=== PATIENT | female | born 1945 | race Hispanic/Latino ===

== ENCOUNTER 2016-09-08 10:55 | Emergency (ER) | payer MEDICARE, OTHER ==
[2016-09-08 11:38] VITALS: BMI 28.7
[2016-09-08 11:42] VITALS: O2SAT 98
[2016-09-08] MEDS ORDERED: cefTRIAXone 1 gm 1 GM/100 ML BAG IVPB STA (11:52)
--- NOTE | 2016-09-08 12:12 | ED PDOC ---
Arrival/HPI - General Chief Complaint: Headache Time Seen by Provider: 09/08/16 11:46 Historian: Patient - History of Present Illness Narrative History of Present Illness (Text): 09/08/16 12:16 A 71 year old female, whose past medical history includes hypertension, presents to the emergency department complaining of worsening right jaw pain and swelling that started two days ago. Reports PMD sent patient to emergency department. Patient denies any earache, sore throat, rhinorrhea, tooth pain, fever, chills or any other complaints at this time. Submental area of jaw has warmth and erythema. Patient reports to smoking quarter of a pack per day. Denies any drinking. PMD: Dr. Alonzo Time/Duration: Other (2 days) Symptom Onset: Sudden Symptom Course: Unchanged Activities at Onset: Rest Context: Home Associated Symptoms (Text): 09/08/16 12:32 2 day history of right jaw pain with a mass and swelling and tenderness which has become red and swollen. No cough congestion or URI. No earache or sore throat. No dental pain, patient has dentures. Sent to the emergency department by her PMD. Past Medical History - Provider Review Nursing Documentation Reviewed: Yes - Infectious Disease Hx of Infectious Diseases: None - Tetanus Immunization Tetanus Immunization: Unknown - Reproductive Menopause: Yes - Cardiac Hx Hypertension: Yes - Pulmonary Hx Respiratory Disorders: No - Neurological Hx Paralysis: No - HEENT Hx HEENT Disorder: No - Renal Hx Renal Disorder: Yes Hx Kidney Stones: Yes - Endocrine/Metabolic Hx Endocrine Disorders: Yes Hx Hypothyroidism: Yes - Hematological/Oncological Hx Blood Transfusions: No Hx Blood Transfusion Reaction: No - Integumentary Hx Dermatological Disorder: No - Musculoskeletal/Rheumatological Hx Musculoskeletal Disorders: No - Gastrointestinal Hx Gastrointestinal Disorders: Yes Hx Diverticulitis: Yes - Genitourinary/Gynecological Hx Genitourinary Disorders: No - Psychiatric Hx Substance Use: No - Surgical History Hx Tonsillectomy: Yes - Anesthesia Hx Anesthesia Reactions: Yes Hx Malignant Hyperthermia: No - Suicidal Assessment Feels Threatened In Home Enviroment: No Family/Social History - Physician Review Nursing Documentation Reviewed: Yes Family/Social History: No Known Family HX Smoking Status: Light Smoker < 10 Cigarettes Daily Hx Alcohol Use: No Hx Substance Use: No Hx Substance Use Treatment: No Allergies/Home Meds Allergies/Adverse Reactions: Allergies No Known Allergies Allergy (Verified 05/16/15 10:22) Home Medications: Home Meds Medication Instructions Recorded Confirmed Hydrochlorothiazide [HCTZ] 12.5 mg PO QAM 06/29/15 09/08/16 Levothyroxine [Synthroid] 0.112 mg PO QAM 06/29/15 09/08/16 Lisinopril [Zestril] 20 mg PO QAM 06/29/15 09/08/16 Pravastatin Sodium [Pravachol] 40 mg PO DAILY 06/29/15 09/08/16 Pantoprazole Sodium [Protonix] 20 mg PO DAILY 07/02/15 09/08/16 Cholecalciferol (Vitamin D3) 3,000 unit PO DAILY 07/17/15 09/08/16 [Vitamin D3] Review of Systems - Physician Review All systems were reviewed & negative as marked: Yes - Review of Systems Constitutional: absent: Fatigue, Fevers, Other (chills) ENT: Other (right jaw pain and swelling; no earache, no tooth pain). absent: Rhinorrhea Respiratory: absent: SOB, Cough, Sputum Cardiovascular: absent: Chest Pain, Palpitations, Syncope Gastrointestinal: absent: Abdominal Pain, Vomiting Skin: Rash Neurological: absent: Headache, Dizziness Physical Exam Vital Signs Reviewed: Yes Vital Signs Temp Pulse Resp BP Pulse Ox 09/08/16 10:56 98.9 F 86 16 144/97 H 98 Temperature: Afebrile Blood Pressure: Hypertensive Pulse: Regular Respiratory Rate: Normal Appearance: Positive for: Well-Appearing, Non-Toxic, Uncomfortable Pain Distress: None Mental Status: Positive for: Alert and Oriented X 3 - Systems Exam Head: Present: Atraumatic, Normocephalic Pupils: Present: PERRL Extroacular Muscles: Present: EOMI Conjunctiva: Present: Normal Ears: Present: NORMAL TM, Normal Canal. No: Erythema, TM Bulging Mouth: Present: Moist Mucous Membranes, Other (no teeth) Pharnyx: No: ERYTHEMA, EXUDATE, TONSILS ENLARGED Neck: Present: Other (R mandible tender, swelling, erythematous with erythema extending submental ) Respiratory/Chest: Present: Clear to Auscultation, Good Air Exchange. No: Respiratory Distress, Accessory Muscle Use Cardiovascular: Present: Regular Rate and Rhythm, Normal S1, S2. No: Murmurs Abdomen: Present: Normal Bowel Sounds. No: Tenderness, Distention, Peritoneal Signs Back: Present: Normal Inspection Upper Extremity: Present: Normal Inspection. No: Cyanosis, Edema Lower Extremity: Present: Normal Inspection. No: Edema Neurological: Present: GCS=15, CN II-XII Intact, Speech Normal Skin: Present: Warm, Dry, Normal Color. No: Rashes Psychiatric: Present: Alert, Oriented x 3, Normal Insight, Normal Concentration Medical Decision Making ED Course and Treatment: 09/08/16 12:09 Impression: A 71 year old female with right jaw pain and swelling. Plan: -- labs -- Rocephin, Toradol -- Reassess and disposition Prior Visits: Notes and results from previous visits were reviewed. Patient last reported to the emergency department on 05/16/15 for evaluation of abdominal pain. Progress Notes: 09/08/16 12:34 I believe that this represents parotitis with infection and inflammation 09/08/16 13:11 Discussed with . He is aware of the CT findings and will follow-up in the office and referred to ENT as warranted. 09/08/16 13:10 CT NECK WITHOUT CONTRAST Creator : John Szymanski MD FINDINGS: NASOPHARYNX: Unremarkable. SUPRAHYOID NECK: Unremarkable oropharynx, oral cavity, parapharyngeal space and retropharyngeal space. INFRAHYOID NECK: Unremarkable larynx, hypopharynx, and supraglottic space. Vocal cords intact. MASS: None. GLANDS: There is enlargement of the right parotid gland. There is also a 3 mm calcification or stone within the superficial lobe of the parotid as seen on image 35 series 2. There are no stones seen in the parotid duct. There is no evidence of a discrete mass. Normal size thyroid gland, without nodule. LYMPH NODES: Normal. No lymphadenopathy. CERVICAL SPINE: No fracture or focal lesion. OTHER FINDINGS: The findings were discussed with Dr. Cantu. IMPRESSION: Enlargement of the right parotid gland. 3 mm stone or calcification in the superficial lobe of the parotid. No evidence of ductal stone. Parotid swelling may be due to a recently passed stone or other causes of parotid inflammation - Lab Interpretations Lab Results: 09/08/16 12:13 Lab Results 09/08/16 12:13: WBC 6.8 D, RBC 4.90, Hgb 13.7, Hct 40.7, MCV 83.1, MCH 28.0, MCHC 33.7, RDW 13.4, Plt Count 167, MPV 9.9, Gran % 78.4 H, Lymph % (Auto) 15.6 L, [place] % (Auto) 5.3, Eos % (Auto) 0.4 L, Baso % (Auto) 0.3, Gran # 5.29, Lymph # 1.1 L, [place] # 0.4, Eos # 0.0, Baso # 0.02 I have reviewed the lab results: Yes - RAD Interpretation Radiology Orders: 09/08/16 12:20 NECK SOFT TISSUE W/O CONTRAST [CT] Stat - Medication Orders Current Medication Orders: Discontinued Medications Ceftriaxone Sodium (Rocephin 1 Gram Ivpb) 1 gm in 100 mls @ 200 mls/hr IVPB STAT STA PRN Reason: Protocol Stop: 09/08/16 12:21 Last Admin: 09/08/16 12:09 Dose: 200 mls/hr Ketorolac Tromethamine (Toradol) 15 mg IVP ONCE ONE Stop: 09/08/16 11:52 Last Admin: 09/08/16 12:08 Dose: 15 mg - Scribe Statement The provider has reviewed the documentation as recorded by the Poppy Avalos Provider Scribe Attestation: All medical record entries made by the Poppy were at my direction and personally dictated by me. I have reviewed the chart and agree that the record accurately reflects my personal performance of the history, physical exam, medical decision making, and the department course for this patient. I have also personally directed, reviewed, and agree with the discharge instructions and disposition. Disposition/Present on Arrival - Present on Arrival Any Indicators Present on Arrival: No History of DVT/PE: No History of Uncontrolled Diabetes: No Urinary Catheter: No History of Decub. Ulcer: No History Surgical Site Infection Following: None - Disposition Have Diagnosis and Disposition been Completed?: Yes Diagnosis: Parotitis Disposition: HOME/ ROUTINE Disposition Time: 13:12 Patient Plan: Discharge Patient Problems: Current Active Problems Problem Status Onset Parotitis Acute Condition: GOOD Discharge Instructions (ExitCare): Sialoadenitis (ED) Additional Instructions: Moist heat. Follow-up with PMD and ENT. Prescriptions: Amoxicillin/Clavulanate [Augmentin 875 MG-125 MG] 1 tab PO Q12 #20 tab Naproxen [Naprosyn] 500 mg PO BID #14 tab Referrals: Arjun Alonzo MD [Primary Care Provider] - Follow up with primary
[2016-09-08 12:24] LABS: BASO # 0.02 K/mm3 (0.0-2.0); BASO % 0.3 % (0.0-3.0); EOS % 0.4 % (1.5-5.0); GRAN # 5.29 (1.4-6.5); GRAN % 78.4 % (50.0-68.0); HEMOGLOBIN 13.7 gm/dL (12.0-16.0); LYMPH # 1.1 (1.2-3.4); LYMPH % 15.6 % (22.0-35.0); MEAN CELL VOLUME 83.1 fL (80.0-105.0); MEAN CORPUSCULAR HGB CONC 33.7 g/dl (31.0-37.0); MEAN PLATELET VOLUME 9.9 fl (7.0-11.0); MONO # 0.4 (0.1-0.6); MONO % 5.3 % (1.0-6.0); PLATELET COUNT 167 10^3/uL (120.0-450.0); RED CELL DISTRIBUTION WIDTH 13.4 % (11.5-14.5); WHITE BLOOD COUNT 6.8 10^3/ul (4.5-11.0)
--- NOTE | 2016-09-08 13:09 | CT ---
PROCEDURE: CT NECK WITHOUT CONTRAST HISTORY: right jaw mass COMPARISON: None. TECHNIQUE: CT of the neck without intravenous contrast. Coronal and sagittal reformats generated. Radiation dose: DLP 266 mGy-cm This CT exam was performed using one or more of the following dose reduction techniques: Automated exposure control, adjustment of the mA and/or kV according to patient size, and/or use of iterative reconstruction technique. FINDINGS: NASOPHARYNX: Unremarkable. SUPRAHYOID NECK: Unremarkable oropharynx, oral cavity, parapharyngeal space and retropharyngeal space. INFRAHYOID NECK: Unremarkable larynx, hypopharynx, and supraglottic space. Vocal cords intact. MASS: None. GLANDS: There is enlargement of the right parotid gland. There is also a 3 mm calcification or stone within the superficial lobe of the parotid as seen on image 35 series 2. There are no stones seen in the parotid duct. There is no evidence of a discrete mass. Normal size thyroid gland, without nodule. LYMPH NODES: Normal. No lymphadenopathy. CERVICAL SPINE: No fracture or focal lesion. OTHER FINDINGS: The findings were discussed with Dr. Cantu. IMPRESSION: Enlargement of the right parotid gland. 3 mm stone or calcification in the superficial lobe of the parotid. No evidence of ductal stone. Parotid swelling may be due to a recently passed stone or other causes of parotid inflammation
[2016-09-08 13:25] VITALS: BP 139/81; PULSE 82; RESP 18; TEMP 98.4
== END 2016-09-08 13:26 | disposition home or self-care (01) ==
LOC: ED 10:55
DX: K11.20 Sialoadenitis, unspecified (principal); Z72.0 Tobacco use
CPT/HCPCS: 70490; 85025; 87040; 96365; 96375; 99285; J0696; J1885

== ENCOUNTER 2018-03-17 11:01 | Outpatient (CLI) | payer MEDICARE | END 2018-03-17 11:02 | disposition home or self-care (01) | LOC: RAD 11:01 ==